=== PATIENT | female | born 1935 | race Caucasian/White ===

== ENCOUNTER 2017-04-16 06:00 | Day surgery (SDC) | payer MEDICARE ==
[2017-04-15 12:58] VITALS: BMI 33.3
--- NOTE | 2017-04-16 05:47 | HP ---
DATE OF ADMISSION: 04/16/2017 HISTORY OF PRESENT ILLNESS: This is an 81-year-old female referred to me by Dr. Puneet De Luna for dysphagia. The patient has had a fundoplication in [address] Bello in [place]. The patient is known to have chronic acid reflux. The patient developed dysphagia approximately 1 year ago in 04/2016. The dysphagia is mostly to solid food that is occuring off and on. She was seen by Dr. Bello and had barium swallow done in 04/2016. Subsequently, EGD done and she was told by Dr. Bello that nothing was wrong with her. The patient has been progressive over the last several months. She is having difficulty drinking liquids and at times she was spitting up some mucus. The patient has painful swallowing. No significant weight loss. The patient is undergoing EGD because of dysphagia, which has been progressive over the last 1 year. ALLERGIES: None. MEDICAL ILLNESSES: 1. Hypertension. 2. Coronary artery disease, status post stent placement. 3. Transient ischemic attack. 4. History of blood clots in the leg and pulmonary embolism in the past. 5. Colon cancer, status post surgery. 6. Rheumatoid arthritis. 7. Aortic regurgitation. 8. Fundoplication. 9. Appendectomy. 10. Left partial hip replacement. PHYSICAL EXAMINATION: GENERAL: Reveals a fragile looking, elderly female appears comfortable. VITAL SIGNS: Her pulse is 70, blood pressure 119/70. HEENT: Conjunctivae clear. CARDIOVASCULAR: Lungs within normal limits. ABDOMEN: Soft to palpate. No organomegaly. No tenderness. No masses. ADMITTING DIAGNOSIS: Dysphagia, which has been progressive over the last 12 months. PLAN: The patient is undergoing EGD and possible dilation. MTDD
[2017-04-16] MEDS ORDERED: MD-Gastroview 120 ML BOT ONE (06:23)
[2017-04-16] MEDS ORDERED: hydrALAZINE 20 MG/ML VIAL ONE (07:54)
--- NOTE | 2017-04-16 08:26 | OP ---
DATE OF PROCEDURE: 04/16/2017 SURGEON: Malgorzata Gannon M.D. OPERATIVE PROCEDURE: 1. Esophagogastroduodenoscopy. 2. Esophageal dilation with a Gusman size 46 Albanian in diameter, followed by balloon dilation to st age 3. PREOPERATIVE DIAGNOSIS: Dysphagia. POSTOPERATIVE DIAGNOSES: 1. Normal vocal cords. 2. No definite esophageal narrowing seen at endoscopy. 3. Normal stomach and duodenum. PROCEDURE IN DETAIL: The patient was placed on her left lateral position and was given sedation by [facility] Anesthesia Department. A Pentax video gastroscope under direct vision was passed down the orophar ynx, past the gastroesophageal junction, into the stomach. The vocal cords appeared healthy. There is no intrinsic lesions in the throat. The esophageal mucosa appears normal to the esophagus. There is no definite esophageal narrowing seen. The scope was advanced into the stomach without difficult y. Retroflexion failed to show any lesions in the fundus or cardia. The gastric body, gastric antru m, incisura angularis, no pathology seen. The scope was advanced into the duodenal bulb and descendi ng duodenum. No pathology seen. The stomach was decompressed and the scope removed. Initially, an attempt was to pass a 50-Albanian Gusman dilator. The dilator was advanced to about 30 cm and I could not advance any further. This dilator was removed. Subsequently, a 46-Albanian Gusman dilator passe d without difficulty. Following this, the patient was rescoped again. There was some friability and mild oozing of blood at the GE junction, indicative of successful passage of dilators. It was elect ed to do a dilation with the balloon. The balloon was inflated to stage I to the GE junction and was advanced back and forth into the stomach without any resistance. The balloon was inflated to stage 2 and then stage 3, again. Even at stage 3 the balloon can be pushed back and forth across the GE ju nction without any resistance. The stomach was decompressed and the scope removed. DISCHARGE PLANNING: This is an 81-year-old female who came in for EGD and dilation. She u nderwent EGD and dilation with Gusman 46 Albanian in diameter. Although the patient complains of dysp hagia, at endoscopy, no definite esophageal narrowing was seen. However, after passage of 46 Albanian there was some friability of the GE junction and mild oozing of blood indicative of possibly a mild s tricture. DISCHARGE RECOMMENDATIONS: 1. The patient was advised to call me if she develops abdominal pain, fever, hematochezia, or melena . 2. Diet as tolerated. 3. If the patient's symptoms do not improve, we will plan for esophageal manometry in the near futur e.
--- NOTE | 2017-04-16 10:18 | CT ---
CT ABDOMEN NONCONTRAST: DATE: 04/16/17. HISTORY: Abdominal pain after endoscopic dilation of the esophagogastric junction. Dr. Botello reported the pneumoperitoneum by telephone to Dr. Max at 9:21 a.m. on 04/16/17. COMPARISON: 06/26/15. TECHNIQUE: No oral or IV contrast was given. Axial images obtained from lung bases to iliac crests. Coronal re constructions. FINDINGS: There is a new finding of a moderate amount of free intraperitoneal air throughout the anterior, nond ependent portions of the peritoneal cavity of the upper abdomen. There is a small collection of more localized, extraluminal air around the cardia of the stomach. Again noted is the renal cross-fused ectopia or horseshoe kidney, with the left kidney located at midline, connected to the right kidney. Again noted is the mild dilation of the bilateral extrarenal pelves. No small bowel dilation. No ascites identified. No signs of acute colonic diverticulitis in the vis ualized upper portions of the abdomen outside of the pelvic cavity. Severe osteopenia. Multiple old compression and burst fractures of the lower thoracic spine and lumbar spine, with mild bony retropu lsion. Vertebroplasty cement fixating some of these. No consolidation at lung bases. No pleural ef fusion. No definite pneumomediastinum is identified in the included, lower portions of the chest. T he descending thoracic aorta and the abdominal aorta are very tortuous, but not aneurysmal. No gross abnormality is identified involving the liver, pancreas, adrenals, or spleen, within the limitations of a noncontrast scan. IMPRESSION: 1. Pneumoperitoneum is evidence for a perforated viscous. The source of the leak is suspected to be at the esophagogastric junction or gastric cardia. 2. Cross-fused ectopia/horseshoe kidney. 3. Severe osteoporosis with multiple old compression/burst fractures of the thoracic spine and lumba r spine, some treated with vertebroplasty. CODE CR POS: [id number]
[2017-04-16] MEDS ORDERED: Clindamycin/D5W 600 mg/50 ml Premix Bag ONE (11:03)
[2017-04-16] MEDS ORDERED: Morphine 4 MG/ML VIAL ONE ×2 (11:04→11:35)
[2017-04-16] MEDS ORDERED: Piperacillin-Tazo-Dextrose,Iso 3.375 GM in Premix Bag 1 BAG IVPB SCH (11:30)
[2017-04-16] MEDS ORDERED: Ondansetron HCl/PF 4 MG/2 ML Vial ONE (11:51)
--- NOTE | 2017-04-16 12:22 | RAD ---
CONTRAST SWALLOW: 04/16/2017 HISTORY: An 81-year-old female with pneumoperitoneum. TECHNIQUE: The patient drank Gastrografin through a straw while in a 45-degree recumbent position on the fluoros copy table and then again while in the right lateral decubitus position. FINDINGS: Because of severe back pain (due to the multiple compression fractures of the thoracic and lumbar spi ne), the patient was not able to tolerate being on the fluoroscopy table well. She was only able to swallow a small amount of Gastrografin. She was spitting up the material. There is a small amount of contrast material traveling through the esophagus, pooling in the fundus o f the stomach. All the Gastrografin stays in the fundus of the stomach during this study and does no t reach the body of the stomach or the distal stomach. No extravasation identified. IMPRESSION: 1. Limited study. 2. No leakage identified; however, this does not rule out the presence of leakage. The CT findings indicate that there is a perforated viscus, probably at the esophagogastric junction. POS: HALI
--- NOTE | 2017-04-16 12:35 | PRG ---
DATE OF SERVICE: 04/16/2017 HISTORY OF PRESENT ILLNESS: Ms. Jess Herrera is a very pleasant 81-year-old female with dysphagia, came in for EGD this morning. She underwent passage of a [id number] 46-Swedish Gusman dilator. After dilatation the patient was rescoped again. There was some friability and mild oozing of blood from the GE junction. However, the esophageal lumen appeared wide open. A Bard balloon size 15-18 mm was placed in the stomach and to stage I and was brought across the GE junction without any difficulty. This was done to stage I and stage 3. The balloon inflation being across the GE junction did not have any resistance. The stomach was decompressed and the scope removed. After she came from day surgery she started having abdominal pain. On re-exam of the patient shows mild discomfort. However, the abdomen was soft and nondistended and minimally tender. The pain was across the upper abdomen. Because of abdominal pain she was sent for a stat abdominal CAT scan. The abdominal CAT scan showed some free air in the abdomen. Also, the GE junction, there was small pockets of air. The patient was sent for a stat Gastrografin swallow study. The Gastrografin study was limited because she is not able to take enough contrast, but during the study the contrast did reach the fundus. There was no leak seen at the GE junction, fundus. I did contact the cardiovascular surgeons locally here and unfortunately, Dr. Mir and Dr Tineo do not do any esophageal surgery. They recommend the patient be transferred to [facility] under the care of Dr. Radha Alvarez. I did call Dr. Alvarez's office and spoke to him. He was kind enough to accept the patient for transfer. I had a long talk with the patient's son and the patient. The patient's family is agreeable to transfer to [facility]. In the meantime we will give her a dose of IV Zofran and also IV clindamycin. She was also given IV morphine 2 mg and repeat dosing one more time. The patient will be transferred to [facility] in [place] as soon as possible. At the present time, I am really not sure if she needs surgery. The Gastrografin study did not show any leak. After examining the patient several times in the day surgery did not show any gas in the neck or the chest wall. There is no subcutaneous emphysema in the neck or the chest wall. This was done immediately after the procedure and also several times again. Also, abdomen remains nondistended and does not show any evidence of peritonitis, any guarding or rebound. Hopefully, the surgery can be avoided and the patient may need some stent placement. NELDA
== END 2017-04-16 12:15 | disposition short-term general hospital (02) ==
LOC: SDC 06:00
PROVIDERS: ATTEND Internal Medicine Gastroenterology
PROC: 0D748ZZ Dilation of Esophagogastric Junction, Via Natural or Artificial Opening Endoscopic (ICD-10-PCS; principal; 2017-04-16)
DX: R13.10 Dysphagia, unspecified (principal); K21.9 Gastro-esophageal reflux disease without esophagitis; I10 Essential (primary) hypertension; I25.10 Atherosclerotic heart disease of native coronary artery without angina pectoris; M06.9 Rheumatoid arthritis, unspecified; I35.1 Nonrheumatic aortic (valve) insufficiency; Z86.73 Personal history of transient ischemic attack (TIA), and cerebral infarction without residual deficits; Z86.718 Personal history of other venous thrombosis and embolism; Z86.711 Personal history of pulmonary embolism; Z85.038 Personal history of other malignant neoplasm of large intestine; Z88.8 Allergy status to other drugs, medicaments and biological substances; Z95.5 Presence of coronary angioplasty implant and graft; Z96.642 Presence of left artificial hip joint; Z90.49 Acquired absence of other specified parts of digestive tract; Z98.890 Other specified postprocedural states; Z88.5 Allergy status to narcotic agent; Z79.01 Long term (current) use of anticoagulants; Z98.49 Cataract extraction status, unspecified eye; Z79.899 Other long term (current) drug therapy
CPT/HCPCS: 74150; 74220; J0360; J2270; J2405; J2543; J3490

== ENCOUNTER 2022-10-18 05:42 | Observation (INO) | payer MEDICARE ==
[2022-10-18 06:28] LABS: #Monocytes 0.3 thou/uL (0.11-0.59); #Neutrophils 1.9 thou/uL (1.40-6.50); %Basophils 0.4 % (0.0-1.0); %Eosinophils 1.4 % (0.0-10.0); %Lymphocytes 19.2 % (21.0-51.0); %Monocytes 10.7 % (0.0-10.0); %Neutrophils 68.3 % (42.0-75.0); Hemoglobin 12.4 g/dL (12.0-16.0); Mean Corpuscular HGB CONC 30.6 g/dL (32.0-36.0); Mean Corpuscular Hemoglobin 30.5 pg (27.0-31.0); Mean Corpuscular Volume 99.5 fl (78.0-98.0); Mean Platelet Volume 9.2 fL (7.4-10.4); Platelet Count 152 10x3/uL (130-400); Red Blood Cell (RBC) Count 4.07 mill/uL (4.20-5.40); White Blood Cell (WBC) Count 2.8 10x3/uL (4.8-10.8)
[2022-10-18 06:43] LABS: Glucose 90 mg/dL (83-110)
[2022-10-18 06:55] LABS: Albumin 3.5 g/dL (3.4-4.8)
[2022-10-18 06:56] LABS: Chloride 107 mmol/L (98-107); Potassium 4.1 mmol/L (3.5-5.1); Sodium 142 mmol/L (136-145)
[2022-10-18 06:57] LABS: Calcium 8.8 mg/dL (7.8-10.44)
[2022-10-18 06:58] LABS: Globulin 2.4 g/dL (2.4-3.5); Protein, Total 5.9 g/dL (5.8-8.1)
[2022-10-18 06:59] LABS: Anion Gap 14 mmol/L (10-20); Bilirubin, Total 0.4 mg/dL (0.2-1.2); Carbon Dioxide 25 mmol/L (23-31)
[2022-10-18 07:00] LABS: Alkaline Phosphatase 123 U/L (40-110)
[2022-10-18 07:01] LABS: Calc. Creatinine Clearance 0 mL/min (70-130); Estimated GFR 72
[2022-10-18 07:02] LABS: BUN (Urea Nitrogen) 15 mg/dL (9.8-20.1)
[2022-10-18 07:03] LABS: ALT (SGPT) 9 U/L (8-55); AST (SGOT) 20 U/L (5-34)
[2022-10-18] MEDS ORDERED: Acetaminophen 325 MG TAB ONE (07:08)
[2022-10-18] MEDS ORDERED: Ondansetron PF 4 MG/2 ML Vial IVP PRN ×2 (08:00→08:04)
[2022-10-18] MEDS ORDERED: Ondansetron ODT 4 MG TAB SL PRN (08:00)
[2022-10-18] MEDS ORDERED: Ondansetron ODT 4 MG TAB PO PRN (08:04)
[2022-10-18] MEDS ORDERED: Bisacodyl 10 MG SUPP PR PRN (08:06)
[2022-10-18] MEDS ORDERED: traMADol HCl 50 MG TAB PO PRN (08:06)
[2022-10-18] MEDS ORDERED: Morphine 2 MG/ML VIAL SLOW IVP PRN (08:06)
[2022-10-18] MEDS ORDERED: Ezetimibe 10 MG TAB PO SCH (09:00)
[2022-10-18] MEDS ORDERED: Isosorbide Dinitrate 5 MG TAB PO SCH (09:00)
[2022-10-18] MEDS ORDERED: Gabapentin 100 MG CAP PO SCH (09:00)
[2022-10-18 09:53] LABS: Troponin I Less than 0.010 ng/mL (< 0.028)
[2022-10-18 10:26] VITALS: BP 171/66; TEMP 98
[2022-10-18] MEDS ORDERED: valACYclovir 500 MG TAB PO SCH ×2 (10:30→21:00)
[2022-10-18] MEDS ORDERED: Acetaminophen 325 MG TAB PO PRN (11:18)
[2022-10-18 13:13] LABS: Troponin I Less than 0.010 ng/mL (< 0.028)
== END 2022-10-18 14:08 | disposition home or self-care (01) ==
LOC: ERS 05:42 → ERHOLD 07:45
PROVIDERS: ADMIT Internal Medicine; ATTEND Internal Medicine
DX: R07.9 Chest pain, unspecified (principal); M25.512 Pain in left shoulder; I25.10 Atherosclerotic heart disease of native coronary artery without angina pectoris; I10 Essential (primary) hypertension; Z86.711 Personal history of pulmonary embolism; Z86.73 Personal history of transient ischemic attack (TIA), and cerebral infarction without residual deficits; Z86.718 Personal history of other venous thrombosis and embolism; Z88.8 Allergy status to other drugs, medicaments and biological substances; Z88.6 Allergy status to analgesic agent; Z90.89 Acquired absence of other organs; Z90.49 Acquired absence of other specified parts of digestive tract; Z96.649 Presence of unspecified artificial hip joint; Z79.01 Long term (current) use of anticoagulants; Z79.899 Other long term (current) drug therapy
CPT/HCPCS: 71045; 80053; 84484 ×2; 85025; 93005; 99285; G0378; 36415